=== PATIENT | female | born 1940 | race Two or more races ===

== ENCOUNTER 2021-04-17 16:31 | Emergency (ER) | payer OTHER ==
[~2021-04-17] VITALS: Ht 167.6 cm; Wt 77.6 kg
[2021-04-17] MEDS ORDERED: ACETAMINOPHEN 500 MG TAB PO ONE (17:00)
[2021-04-17 17:54] VITALS: BP 134/70
== END 2021-04-17 18:26 | disposition home or self-care (01) ==
LOC: ER 16:31
DX: S52.592A Other fractures of lower end of left radius, initial encounter for closed fracture (principal); S52.615A Nondisplaced fracture of left ulna styloid process, initial encounter for closed fracture; I10 Essential (primary) hypertension; Z98.890 Other specified postprocedural states; W01.0XXA Fall on same level from slipping, tripping and stumbling without subsequent striking against object, initial encounter; Y93.89 Activity, other specified; Y92.89 Other specified places as the place of occurrence of the external cause; Y99.8 Other external cause status
CPT/HCPCS: 29125; 73110

== ENCOUNTER 2025-04-07 07:40 | Day surgery (SDC) | payer OTHER ==
[~2025-04-07] VITALS: Ht 165.1 cm; Wt 67.1 kg
[~2025-04-07 07:40] MED LIST: AMLO1TAB23 PO; APIX2.5T PO; ATEN-60 PO; CRAN500C9 PO; FAMO20TA10 PO; PANT40TA2 PO
[2025-04-07] MEDS ORDERED: fentaNYL CITRATE 100 MCG/2 ML VL IV ONE (08:15)
[2025-04-07] MEDS ORDERED: LIDOCAINE VISCOUS 2% 15ML UD PO ONE (08:15)
[2025-04-07] MEDS ORDERED: MIDAZOLAM HCL 2MG/2ML 2ml VIAL (1mg/ml) IV ONE (08:15)
[2025-04-07] MEDS ORDERED: diphenhdrAMINE HCL 50 MG/1 ML VL ONE (08:39)
[2025-04-07 09:55] VITALS: BP 134/80; PULSE 87; RESP 19; TEMP 98.2; O2SAT 96
--- NOTE | 2025-04-07 10:04 | DVHOP2 ---
Operative Report Operative Report [employer] WARRANT OFFICER PROCEDURE REPORT [place], [place] Date of Service: 04/07/25 Head Up Operator Helper: Prema Jeffrey MD PROCEDURES PERFORMED: trans esophageal echocardiogram, conscious sedation <15 mins, doppler assesment complete ANA, DC cardioversion PREOPERATIVE DIAGNOSES: AFib POSTOP DIAGNOSIS: SR DESCRIPTION OF PROCEDURE: The patient or appropriate family signed informed consent understanding the risks, benefits and alternatives of the procedure, they wished to proceed. The patient was brought to the cardiac dairy laboratory technician in n.p.o. state. the patient was given 15 ml of oral viscous lidocaine. the patient was placed in a left lateral decubitus position with bite block in mouth. NExt conscious sedation was administered per dairy laboratory technician protocol with __2 mg of versed and __50_ mcg of fentanyl. Next a ANA probe was advanced to the mid esophagus with ease and multiple planar images obtained. At the completion of the procedure , probe was removed and there were no immediate complications. FINDINGS: Left Ventricle: Normal LV size and function, LVEF estimated at 55 % Right Ventricle: NOrmal RV unction Left atrium: moderate to marked enlargement Right atrium: mpderate enlarged Left atrial appendage: no thrombus noted, decreased velocity on PW monitoring Aortic valve: trileaflet valve, no severe or AI Mitral Valve: structurally normal, mild to moderate mitral regurg, no MS Tricuspid Valve: mild tricuspid regurgitaiton, no TS Pulmonic Valve: strucutrally normal, no severe PIor PS Interatrial septum: negative color flow for R to L shunt Ascending aorta: no severe plaquing Next we sync'ed to 200 J and 1 shock delivered with successful yarsanism of Normal Sinus rhythm. CONCLUSIONS: 1. Successful ANA guided DCCV PLAN: cont doac cont amiodarone for now high risk for recurrence given atrial size PREMA JEFFREY MD Apr 07, 2025 10:04
[2025-04-07 10:10] VITALS: BP 134/76; PULSE 75; RESP 13; O2SAT 94
[2025-04-07 10:25] VITALS: BP 114/69; PULSE 74; RESP 12; O2SAT 96
[2025-04-07 10:40] VITALS: BP 116/53; PULSE 58; RESP 15; O2SAT 98
[2025-04-07 10:55] VITALS: BP 113/62; PULSE 61; RESP 15; O2SAT 97
[2025-04-07 11:25] VITALS: BP 127/85; PULSE 65; RESP 18; O2SAT 95
--- NOTE | 2025-04-08 07:41 | ECG ---
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
--- NOTE | 2025-04-08 07:42 | ECG ---
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
[2025-04-11] MEDS ORDERED: CYCL0.05 EACHEYE (19:43)
== END 2025-04-07 11:35 | disposition home or self-care (01) ==
LOC: CATH 07:40
PROVIDERS: ATTEND Internal Medicine
DX: I48.91 Unspecified atrial fibrillation (principal); I08.1 Rheumatic disorders of both mitral and tricuspid valves; Z79.899 Other long term (current) drug therapy; Z88.8 Allergy status to other drugs, medicaments and biological substances; Z80.8 Family history of malignant neoplasm of other organs or systems
CPT/HCPCS: 92960; 93005; 93312; 93325; J1200; J2250; J3010; J7040; 99152

== ENCOUNTER 2025-04-11 12:51 | Inpatient (IN) | payer OTHER ==
[~2025-04-11] VITALS: Ht 165.1 cm; Wt 69.5 kg
--- NOTE | 2025-04-11 13:07 | ECG ---
[facility] Test Date: 2025-04-11 Test Time: 12:57:51 Pat Name: PILLO BRAGG Department: ER Room: 0276T Gender: F Biometrician: LUCIANO : 1940 Requested By: CHANDRAKANT GRAHAM Order Number: [id number] Reading MD: Henok Carballo Measurements Intervals [place] Rate: 76 P: 42 [place]: 244 QRS: -24 QRSD: 97 T: 19 QT: 356 QTc: 401 Interpretive Statements Sinus rhythm Supraventricular bigeminy Prolonged [place] interval Probable left atrial enlargement Borderline left axis deviation Low voltage, precordial leads Anteroseptal infarct, old Electronically Signed On 04-17-2025 18:14:20 PDT by Henok Carballo Please click the below link to view image of tracing.
--- NOTE | 2025-04-11 13:08 | ED.PDOC ---
HPI Comments This is a 85 year old female presenting to the ED with chief complaint of chest pain. Patient reports that she has been experiencing left sided chest pressure with associated palpitations since yesterday. Patient relays that she was cardioverted on 04/07/25 for A-Fib treatment, feeling much better until symptom onset. Time Seen by MD: 13:06 Primary Care Provider: Degn Contreras Notes: Nurses Notes, Medications, Allergies Allergies: Uncoded Allergies: Macrobid, Losartan, Lisinopril, Benicar (Allergy, Intermediate, 04/03/25) Home Meds Reported Medications Amlodipine Besylate (Amlodipine Besylate) 10 Mg Tab, 1 TAB PO QAM for HYPERTENSION 04/04/25 Cranberry Extract (Cran-Max) 500 Mg Cap, 1 CAP PO DAILY for SUPPLEMENT 04/04/25 Pantoprazole Sodium Sesquihydr (Protonix) 40 Mg Tab, 1 TAB PO DAILY for GERD 04/04/25 Apixaban Base (ELIQUIS) 2.5 Mg Tab, 1 TAB PO BID for A.FIB 04/02/25 Famotidine (PEPCID TABLET) 20 Mg Tb, 2 TAB PO DAILY for GERD 04/02/25 Atenolol (Atenolol) 25 Mg Tab, 1 TAB PO QAM for HYPERTENSION 04/02/25 Discontinued Reported Medications Amlodipine Besylate (Amlodipine Besylate) 5 Mg Tab, 10 MG PO DAILY for 30 Days, MG 04/03/25 Cranberry Extract (Cranberry Extract) 200 Mg Cap, 500 MG PO DAILY for SUPPLEMENT, CAP 04/02/25 Information Source: Patient Mode of Arrival: Ambulatory Severity: Moderate Timing: Days Duration: Since onset Prehospital treatment: None Location: Chest (L) Radiation: No Radiation Quality: Pressure Onset: At Rest Cardiac Risk Factors: HTN Past Medical History PAST MEDICAL HISTORY: AFIB, Cancer, HTN Surgical History: Hernia Repair, Hysterectomy LABOR TRAINER History: Denies all LABOR TRAINER Hx Family History Family History: Reviewed,noncontributory to illness Social History Smoker: Non-Smoker Alcohol: Denies ETOH Use Drugs: Denies Drug Use Lives In: Home Constitutional: denies: chills, diaphoresis, fatigue, fever, malaise, sweats, weakness, others EENTM: denies: blurred vision, double vision, ear bleeding, ear discharge, ear drainage, ear pain, ear ringing, eye pain, eye redness, hearing loss, mouth pain, mouth swelling, nasal discharge, nose bleeding, nose congestion, nose pain, photophobia, tearing, throat pain, throat swelling, voice changes, others Respiratory: denies: cough, hemoptysis, orthopnea, SOB at rest, shortness of breath, SOB with excertion, stridor, wheezing, others Cardiovascular: reports: chest pain, palpitations; denies: dizzy spells, diaphoresis, Dyspnea on exertion, edema, irregular heart beat, left arm pain, lightheadedness, PND, syncope, others Gastrointestinal: denies: abdomen distended, abdominal pain, blood streaked bowels, constipated, diarrhea, dysphagia, difficulty swallowing, hematemesis, melena, nausea, poor appetite, poor fluid intake, rectal bleeding, rectal pain, vomiting, others Genitourinary: denies: abnormal vagina bleeding, burning, dyspareunia, dysuria, flank pain, frequency, hematuria, incontinence, pain, , vagina discharge, urgency, others Neurological: denies: dizziness, fainting, headache, left sided numbness, left sided weakness, numbness, paresthesia, pre-existing deficit, right sided numbness, right sided weakness, seizure, speech problems, tingling, tremors, weakness, others Musculoskeletal: denies: back pain, gout, joint pain, joint swelling, muscle pain, muscle stiffness, neck pain, others Integumetry: denies: bruises, change in color, change in hair/nails, dryness, laceration, lesions, lumps, rash, wounds, others Allergic/Immunocompromised: denies: Difficulty Healing, Frequent Infections, Hives, Itching, others Hematologic/Lymphatic: denies: anemia, blood clots, easy bleeding, easy bruising, swollen glands, others Endocrine: denies: excessive hunger, excessive sweating, excessive thirst, excessive urination, flushing, intolerance to cold, intolerance to heat, unexplained weight gain, unexplained weight loss, others Psychiatric: denies: anxiety, bipolar disorder, depression, hopeless, panic disorder, schizophrenia, sleepless, suicidal, others All Other Systems: Reviewed and Negative Physical Exam General Appearance: No Apparent Distress, Normal HEENT: Normal ENT Inspection, Pharynx Normal, TMs Normal Neck: Full Range of Motion, Non-Tender, Normal, Normal Inspection Respiratory: Chest Non-Tender, Lungs Clear, No Accessory Muscle Use, No Respiratory Distress, Normal Breath Sounds Cardiovascular: No Edema, No JVD, No Murmur, No Gallop, Normal Peripheral Pulses, Other (Irregularly irregular) Breast Exam: Deferred Gastrointestinal: No Organomegaly, Non Tender, No Pulsatile Mass, Normal Bowel Sounds, Soft Genitalia: Deferred Pelvic: Deferred Rectal: Deferred Extremities: No calf tenderness, Normal capillary refill, Normal inspection, Normal range of motion, Non-tender, No pedal edema Musculoskeletal : Apperance: Normal Neurologic: Alert, paper cone grader II-XII nml as Tested, No Motor Deficits, Normal Affect, Normal Mood, No Sensory Deficits Cerebellar Function: Normal Reflexes: Normal Skin: Dry, Normal Color, Warm Lymphatic: No Adenopathy EKG EKG : Pulse Rate (adult): 76 Cardiac Rhythm: NSR Comments Supraventricular Bigeminy, Septal Q Waves, No ST elevation Was a procedure done? Was a procedure done?: No CP Differential Dx Differential Diagnosis: A-fib, A-Flutter, Angina, Anxiety / Panic Attack, Atrial Dysrhythmia, Electrolyte Disorder, IA Differential Diagnosis: Angina, Aortic dissection, Chest Wall Pain, Cholelithiasis, Costochondritis, Esophageal reflux/spasm, Gastritis, Myocardial Infarction, Pericarditis, Pneumonia, Pneumothorax, Pulmonary Embolus X-Ray, Labs, Meds, VS Vital Signs Date Time Temp Pulse Resp B/P (MAP) Pulse Ox O2 Delivery O2 Flow Rate FiO2 04/11/25 15:29 97.3 67 16 136/72 (93) 98 97.3 04/11/25 13:54 82 04/11/25 13:30 66 04/11/25 13:30 98.6 66 18 146/75 (98) 97 98.6 04/11/25 13:08 76 04/11/25 12:57 76 04/11/25 12:55 97.7 69 18 153/71 (98) 96 97.7 Lab Test 04/11/25 16:44 04/11/25 14:03 04/11/25 13:18 Range/Units Troponin I High Sensitivity Pending 5 5 </=34 ng/L White Blood Count 5.8 4.4-10.8 10^3/uL Red Blood Count 3.99 L 4.0-5.20 10^6/uL Hemoglobin 12.6 12.2-16.2 g/dL Hematocrit 37.4 36.0-46.0 % Mean Corpuscular Volume 93.9 80.0-100.0 fL Mean Corpuscular Hemoglobin 31.6 28.0-32.0 pg Mean Corpuscular Hemoglobin Concent 33.7 32.0-36.0 g/dL Red Cell Distribution Width 14.6 H 11.8-14.3 % Platelet Count 172 140-450 10^3/uL Mean Platelet Volume 8.2 6.9-10.8 fL Neutrophils (%) (Auto) 64.5 37.0-80.0 % Lymphocytes (%) (Auto) 25.1 10.0-50.0 % Monocytes (%) (Auto) 7.8 0.0-12.0 % Eosinophils (%) (Auto) 1.7 0.0-7.0 % Basophils (%) (Auto) 0.9 0.0-2.0 % Neutrophils # (Auto) 3.8 1.6-8.6 10 ^3/uL Lymphocytes # (Auto) 1.5 0.4-5.4 10 ^3/uL Monocytes # (Auto) 0.5 0-1.3 10 ^3/uL Eosinophils # (Auto) 0.1 0-0.8 10 ^3/uL Basophils # (Auto) 0.1 0-0.2 10 ^3/uL Nucleated Red Blood Cells 0.0 % Sodium Level 143 136-145 mmol/L Potassium Level 4.0 3.5-5.1 mmol/L Chloride Level 109 H 98-107 mmol/L Carbon Dioxide Level 26 20-31 mmol/L Anion Gap 8 5-15 Blood Urea Nitrogen 17 9-23 mg/dL Creatinine 0.96 0.550-1.02 mg/dL Glomerular Filtration Rate Calc 58 >90 mL/min BUN/Creatinine Ratio 17.7 10.0-20.0 Serum Glucose 89 74-106 mg/dL Calcium Level 11.3 H 8.7-10.4 mg/dL Current Medications Medications (Trade) Dose Ordered Sig/Jany Route Start Time Stop Time Status Last Admin Aspirin 162 mg ONCE ONCE PO 04/11/25 13:15 04/11/25 13:16 DC 04/11/25 13:36 Chest XR: FINDINGS: LUNGS AND PLEURAL SPACES: Unremarkable. No consolidation. No pneumothorax. HEART: Cardiomegaly without overt failure. MEDIASTINUM: Unremarkable. Normal mediastinal contour. BONES/JOINTS: Unremarkable. No acute fracture. OTHER FINDINGS: Comparison None. IMPRESSION: Cardiomegaly without overt failure. Images Reviewed?: Images reviewed and evaluated by me Time of 1ST Reevaluation: 14:04 Reevaluation 1ST: Unchanged Time of 2ND Reevaluation: 16:26 Reevaluation 2ND: Improved Consultation: Other (Dr Vega, who is non profit financial controller for choice and will admit) Patient Education/Counseling: Diagnosis, Treatment, Prognosis, Need For Follow Up Family Education/Counseling: Diagnosis, Treatment, Prognosis, Need For Follow Up, No Family Present Comments pt has unstable angina. workup does not show IA, but she has new chest pain, without prior history of chest pain, a HEART score of 7 Additional Information Reviewed patient's previous visit(s): 04/17/21 for Fall injury to left arm The following tests were ordered, and results were reviewed by me: CBC, BMP, Troponin, EKG, Chest XR Additional information was gathered from interviewing the following independent historian: None I reviewed and agreed with the following test results read by other provider: Chest XR I discussed treatments and results with medical personnel and: Patient Comprehensive systems review obtained and negative except for what is stated in the HPI. SEPSIS Sepsis Screen Physician Orders Chest Portable (04/11/25 13:06) Continuous Ekg Monitoring 08,12,16,20,00,04 (04/11/25 13:06) Troponin-I Hs (04/11/25 16:06) Electrocardigram (04/11/25 14:06) Electrocardigram (04/11/25 16:06) Vital Signs Date Time Temp Pulse Resp B/P (MAP) Pulse Ox O2 Delivery O2 Flow Rate FiO2 04/11/25 15:29 97.3 67 16 136/72 (93) 98 97.3 04/11/25 13:54 82 04/11/25 13:30 66 04/11/25 13:30 98.6 66 18 146/75 (98) 97 98.6 04/11/25 13:08 76 04/11/25 12:57 76 04/11/25 12:55 97.7 69 18 153/71 (98) 96 97.7 Laboratory Tests Test 04/11/25 13:18 White Blood Count 5.8 10^3/uL (4.4-10.8) Medications Medications Dose Ordered Sig/Jany Route Start Time Stop Time Status Last Admin Dose Admin Aspirin 162 mg ONCE ONCE PO 04/11/25 13:15 04/11/25 13:16 DC 04/11/25 13:36 Departure 1 Departure Time of Disposition: 16:27 Impression: Primary Impression: Unstable angina Disposition: ADMITTED INPATIENT Admit to: Tele Condition: Serious Discharged With: Self, Relative Critical Care Note Critical Care Time?: Yes (55 min-critical care time only) Critical care comment: due to concerns for patient's condition deteriorating, the care required my highest level of attention and readiness to intervene. i assessed the patient's condition, ordered the proper tests and treatments, reassessed for response and reviewed the results. i communicated with medical personnel and formulated a plan of care. total critical care time does not include any procedures Stability Stability form required: No Heart Score Heart Score: Heart Score Response (Comments) Value History Highly Suspicious 2 EKG Repolarization Disturb 1 Age >65 2 Risk Factors >3 or Hx ASHD 2 Troponin Normal limit 0 Total 7 I personally scribed for CHANDRAKANT GRAHAM MD ([email or web address]) on 04/11/25 at 13:08. Electronically submitted by Alec Schrader ([email or web address]). I personally scribed for CHANDRAKANT GRAHAM MD ([email or web address]) on 04/11/25 at 14:51. Electronically submitted by Alec Schrader ([email or web address]). CHANDRAKANT GRAHAM MD Apr 11, 2025 13:08
[2025-04-11 13:30] VITALS: PULSE 66
--- NOTE | 2025-04-11 13:32 | DVH ---
EXAM: XR Chest, 1 View CLINICAL INDICATION: cp TECHNIQUE: Frontal view of the chest. COMPARISON: No relevant prior studies available. FINDINGS: LUNGS AND PLEURAL SPACES: Unremarkable. No consolidation. No pneumothorax. HEART: Cardiomegaly without overt failure. MEDIASTINUM: Unremarkable. Normal mediastinal contour. BONES/JOINTS: Unremarkable. No acute fracture. OTHER FINDINGS: Comparison None. IMPRESSION: Cardiomegaly without overt failure. HS:Y
[2025-04-11 13:50] LABS: Hematocrit 37.4 % (36.0-46.0); Hemoglobin 12.6 g/dL (12.2-16.2); Mean Corpuscular Hemoglobin 31.6 pg (28.0-32.0); Mean Corpuscular Volume 93.9 fL (80.0-100.0); Nucleated Red Blood Cells % 0.0 %
[2025-04-11 13:54] LABS: Potassium 4.0 mmol/L (3.5-5.1); Sodium 143 mmol/L (136-145)
[2025-04-11 13:55] LABS: Anion Gap 8 (5-15); Carbon Dioxide 26 mmol/L (20-31)
[2025-04-11 14:00] LABS: BUN/Creatinine Ratio 17.7 (10.0-20.0); Blood Urea Nitrogen 17 mg/dL (9-23); Glucose 89 mg/dL (74-106)
[2025-04-11 14:08] LABS: Calcium 11.3 mg/dL (8.7-10.4); Chloride 109 mmol/L (98-107)
[2025-04-11] MEDS ORDERED: MORPHINE SULFATE INJ 2 MG/ml SYRG IV PRN ×2 (18:30)
[2025-04-11] MEDS ORDERED: ONDANSETRON HCL 4 MG/2 ML VIAL IV PRN (18:30)
[2025-04-11] MEDS ORDERED: NITROGLYCERIN 0.4 MG SL TAB SL PRN (18:30)
[2025-04-11] MEDS ORDERED: HYDROcodone-ACET 5/325MG TAB PO PRN (18:30)
[2025-04-11] MEDS: SODIUM CHLORIDE 0.9% 1,000 ML IV SCH (18:58)
[2025-04-11 19:19] VITALS: BP 150/87; PULSE 73; RESP 17; TEMP 98.1; O2SAT 99
[2025-04-11] MEDS ORDERED: LATA0.008 EACHEYE (19:43)
[2025-04-11] MEDS ORDERED: CALC600T25 PO (19:43)
[2025-04-11] MEDS ORDERED: CYCL0.05 EACHEYE (19:43)
[2025-04-11] MEDS ORDERED: ATEN-60 PO (19:43)
[2025-04-11] MEDS ORDERED: METR1GEL EX (19:45)
[2025-04-11 20:07] VITALS: RESP 16; O2SAT 0
[2025-04-11 22:10] VITALS: BP 137/73; PULSE 63; RESP 17; TEMP 97.7; O2SAT 97
[2025-04-12 01:00] VITALS: BP 133/79; PULSE 63; RESP 17; TEMP 97.7; O2SAT 97
--- NOTE | 2025-04-12 01:48 | DVHHP2 ---
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 Patient denies aggravating factors. Patient endorses her vrt mechanic is Dr. Iyer. During the emergency department evaluation CBC is unremarkable. CMP is unremarkable. Troponin flat trending . ECG SR with supraventricular bigeminy, prolonged NC interval, old anteroseptal infarct. CXR impression cardiomegaly without overt failure. At this time there are no complaints of fevers, chills, shortness of breath, dizziness, syncope, abdominal pain, nausea, vomiting, leg swelling Cardiovascular: AFIB, HTN Smoke: No ALCOHOL: none Drugs: None Review of Systems Constitutional: No: Fever, Chills, Sweats, Weakness, Malaise, Other Eyes: No: Pain, Vision change, Conjunctivae inflammation, Eyelid inflammation, Other, Redness ENT: No: Ear pain, Ear discharge, Nose pain, Nose discharge, Nose congestion, Mouth pain, Mouth swelling, Throat pain, Throat swelling, Other Respiratory: No: Cough, Dry, Shortness of breath, SOB with excertion, Wheezing, Hemoptysis, Pleuritic Pain, Sputum, Wheezing, Other Cardiovascular: Chest Pain, Palpitations; No: Orthopnea, Paroxysmal Noc. Dyspnea, Edema, Lt Headedness, Other Gastrointestinal: No: Nausea, Vomiting, Abdominal Pain, Diarrhea, Constipation, Melena, Hematochezia, Other Genitourinary: No Dysuria, No Frequency, No Incontinence, No Hematuria, No Ret ention, No Other Musculoskeletal: No: other, neck pain, shoulder pain, arm pain, back pain, hand pain, leg pain, foot pain Skin: No: Rash, Lesions, Jaundice, Bruising, Other Neurological: No: Weakness, Numbness, Incoordination, Change in speech, Confusion, Seizures, Other Allergies: Uncoded Allergies: Macrobid, Losartan, Lisinopril, Benicar (Allergy, Intermediate, 04/03/25) Medications Current Medications Medications Dose Ordered Sig/Jany Route Start Time Stop Time Status Last Admin Dose Admin Sodium Chloride 1,000 ml @ 60 mls/hr [id number] IV 04/11/25 18:30 04/11/25 18:58 60 MLS/HR Acetaminophen/ Hydrocodone Bitart 1 tab Q4HP PRN PO 04/11/25 18:30 Ondansetron HCl 4 mg Q4HP PRN IV 04/11/25 18:30 Enoxaparin Sodium 40 mg DAILY SC 04/12/25 10:00 Acetaminophen 650 mg Q6HP PRN PO 04/11/25 18:30 Morphine Sulfate 2 mg Q4HPRN PRN IV 04/11/25 18:30 Nitroglycerin 0.4 mg Q5MINP PRN SL 04/11/25 18:30 Morphine Sulfate 2 mg Q30M PRN IV 04/11/25 18:30 Exam Vital Signs Vital Signs Date Time Temp Pulse Resp B/P (MAP) Pulse Ox O2 Delivery O2 Flow Rate FiO2 04/11/25 22:10 97.7 63 17 137/73 (94) 97 97.7 04/11/25 20:07 Room Air* 0 21 General Appearance: Alert, Oriented X3, Cooperative, mild distress HEENT: Atraumatic, PERRLA, EOMI Respiratory: Clear to auscultation, Normal air movement Cardiovascular: Regular rate, Normal S1, Normal S2 Abdominal: Normal bowel sounds, Soft, No tenderness Extremities: No cyanosis, No edema, Normal pulses Skin: No rashes, No breakdown Neuro: Normal speech, Strength at 5/5 X4 ext Psych/Mental Status: Mental status NL, Mood NL Labs/Xrays Labs Test 04/11/25 16:44 04/11/25 13:18 Range/Units Troponin I High Sensitivity 5 </=34 ng/L White Blood Count 5.8 4.4-10.8 10^3/uL Red Blood Count 3.99 L 4.0-5.20 10^6/uL Hemoglobin 12.6 12.2-16.2 g/dL Hematocrit 37.4 36.0-46.0 % Mean Corpuscular Volume 93.9 80.0-100.0 fL Mean Corpuscular Hemoglobin 31.6 28.0-32.0 pg Mean Corpuscular Hemoglobin Concent 33.7 32.0-36.0 g/dL Red Cell Distribution Width 14.6 H 11.8-14.3 % Platelet Count 172 140-450 10^3/uL Mean Platelet Volume 8.2 6.9-10.8 fL Neutrophils (%) (Auto) 64.5 37.0-80.0 % Lymphocytes (%) (Auto) 25.1 10.0-50.0 % Monocytes (%) (Auto) 7.8 0.0-12.0 % Eosinophils (%) (Auto) 1.7 0.0-7.0 % Basophils (%) (Auto) 0.9 0.0-2.0 % Neutrophils # (Auto) 3.8 1.6-8.6 10 ^3/uL Lymphocytes # (Auto) 1.5 0.4-5.4 10 ^3/uL Monocytes # (Auto) 0.5 0-1.3 10 ^3/uL Eosinophils # (Auto) 0.1 0-0.8 10 ^3/uL Basophils # (Auto) 0.1 0-0.2 10 ^3/uL Nucleated Red Blood Cells 0.0 % Sodium Level 143 136-145 mmol/L Potassium Level 4.0 3.5-5.1 mmol/L Chloride Level 109 H 98-107 mmol/L Carbon Dioxide Level 26 20-31 mmol/L Anion Gap 8 5-15 Blood Urea Nitrogen 17 9-23 mg/dL Creatinine 0.96 0.550-1.02 mg/dL Glomerular Filtration Rate Calc 58 >90 mL/min BUN/Creatinine Ratio 17.7 10.0-20.0 Serum Glucose 89 74-106 mg/dL Calcium Level 11.3 H 8.7-10.4 mg/dL Assessment/Plan Assessment/Plan Angina Hx Afib s/p cardioversion Hypertension Plan Admit telemetry Consult cardiology. Echocardiogram. Continue home medication. As needed antihypertensive for optimal BP management. Monitor electrolytes. As needed sublingual nitroglycerin for chest pain. Physical therapy evaluation GI PPx protonix / DVT PPX Lovenox Plan discussed with: Patient Date of Service: Apr 12, 2025 Billing Provider: NICKY HERNANDEZ MD Common Visit Codes: NOT BILLABLE NICKY HERNANDEZ MD 04/12/25 1633: Review of Systems Allergies: Uncoded Allergies: Macrobid, Losartan, Lisinopril, Benicar (Allergy, Intermediate, 04/03/25) EMPERATRIZ DINH NP Apr 12, 2025 01:48 NICKY HERNANDEZ MD Apr 12, 2025 16:33
[2025-04-12 05:00] VITALS: BP 136/97; PULSE 68; RESP 18; TEMP 97.9; O2SAT 96
--- NOTE | 2025-04-12 06:41 | ECG ---
[facility] Test Date: 2025-04-11 Test Time: 13:54:28 Pat Name: PILLO BRAGG Department: ER Room: [facility]6T B Gender: F Invisible Braces Orthodontist: AALIYAH : 1940 Requested By: CHANDRAKANT GRAHAM Order Number: [id number] Reading MD: Henok Carballo Measurements Intervals [place] Rate: 82 P: 27 DC: 262 QRS: -23 QRSD: 97 T: 16 QT: 371 QTc: 434 Interpretive Statements Sinus rhythm Supraventricular bigeminy Prolonged [place] interval Probable left atrial enlargement Borderline left axis deviation Anteroseptal infarct, age indeterminate Electronically Signed On 04-17-2025 18:14:59 PDT by Henok Carballo Please click the below link to view image of tracing.
[2025-04-12 07:18] LABS: Hematocrit 39.2 % (36.0-46.0); Hemoglobin 13.2 g/dL (12.2-16.2); Mean Corpuscular Hemoglobin 31.7 pg (28.0-32.0); Mean Corpuscular Volume 94.3 fL (80.0-100.0); Nucleated Red Blood Cells % 0.1 %
[2025-04-12 07:30] LABS: Anion Gap 9 (5-15); Carbon Dioxide 25 mmol/L (20-31); Potassium 4.0 mmol/L (3.5-5.1); Sodium 144 mmol/L (136-145)
[2025-04-12 07:36] LABS: BUN/Creatinine Ratio 14.8 (10.0-20.0); Blood Urea Nitrogen 13 mg/dL (9-23); Calcium 11.6 mg/dL (8.7-10.4); Chloride 110 mmol/L (98-107); Glucose 79 mg/dL (74-106)
[2025-04-12 07:37] LABS: Magnesium 1.9 mg/dL (1.6-2.6)
[2025-04-12 08:00] VITALS: PULSE 108; PULSE 67; RESP 18; O2SAT 93
[2025-04-12 09:00] VITALS: BP 140/68; PULSE 72; RESP 20; TEMP 97; O2SAT 96
[2025-04-12] MEDS: PANTOPRAZOLE 40 MG/10 ML VIAL INJ IV SCH (09:20)
[2025-04-12] MEDS: ENOXAPARIN SOD 40 MG/0.4 ML SYRINGE SC SCH (09:21)
[2025-04-12] MEDS: ACETAMINOPHEN 325 MG TAB PO PRN (09:21)
--- NOTE | 2025-04-12 10:18 | DVHINCON2 ---
Date Seen: Apr 12, 2025 Referring Physician MD Gary Reason for Consultation Unstable angina History of Present Illness This is an 85-year-old female patient who presents to the emergency room with chief complaint of chest pain for two days prior to emergency room arrival. She describes the pain as unprovoked, pressure-like in nature, intermittent, substernal and nonradiating. She denies any aggravating or alleviating factors. She also denies any associated symptoms. Cardiology has now been consulted for further evaluation. Initial twelve lead electrocardiogram reveals normal sinus rhythm with first-degree AV block and bigeminy PACs. Serial troponin levels hav e been negative. Significant past medical history includes hypertension, atrial fibrillation status post ANA with direct current cardioversion on 04/07/2025, uterine cancer status post total hysterectomy, cataracts, and glaucoma. The patient follows for Cardiology in the outpatient setting. Past Medical History Past medical history reviewed. No other significant than mentioned above. Past Surgical History Total hysterectomy Hernia repair Family History: Cancer of mouth Family History Family history reviewed. Social History Denies the use of tobacco, alcohol or illicit drugs. Allergies: Uncoded Allergies: Macrobid, Losartan, Lisinopril, Benicar (Allergy, Intermediate, 04/03/25) Home Meds Reported Medications Metronidazole (Topical) (METRONIDAZOLE) 1 % Gel, 1 % EX BID, GEL 04/11/25 Calcium W/ Vitamin D (CALCIUM/VITAMIN D) 600 Mg Tab, 600 MG PO DAILY, TAB 04/11/25 Latanoprost (LATANOPROST) 0.005 % Kaylee, 1 DROP EACHEYE QPM, #2.5 ML 6 Refills 04/11/25 Cyclosporine (Ophth) (Restasis) 0.05 % Emu, 0.5 DROP EACHEYE BID, #60 VIAL 3 Refills 04/11/25 Atenolol (Atenolol) 25 Mg Tab, 12.5 MG PO BID, MG 04/11/25 Amlodipine Besylate (Amlodipine Besylate) 10 Mg Tab, 1 TAB PO QAM for HYPERTENSION 04/04/25 Pantoprazole Sodium Sesquihydr (Protonix) 40 Mg Tab, 1 TAB PO DAILY for GERD 04/04/25 Apixaban Base (ELIQUIS) 2.5 Mg Tab, 1 TAB PO BID for A.FIB 04/02/25 Famotidine (PEPCID TABLET) 20 Mg Tb, 2 TAB PO DAILY for GERD 04/02/25 Home Meds Home medications reviewed. Current Medications Current Medications Medications (Trade) Dose Ordered Sig/Jany Route PRN Reason Start Time Stop Time Status Last Admin Sodium Chloride 1,000 ml @ 60 mls/hr [id number] IV 04/11/25 18:30 04/11/25 18:58 Acetaminophen/ Hydrocodone Bitart ([place] 5/325MG Tab) 1 tab Q4HP PRN PO MODERATE PAIN (4-6 PAIN SCALE) 04/11/25 18:30 Ondansetron HCl (Zofran) 4 mg Q4HP PRN IV NAUSEA / VOMITING 04/11/25 18:30 Enoxaparin Sodium (Lovenox) 40 mg DAILY SC 04/12/25 10:00 04/12/25 09:21 Acetaminophen (Tylenol Tablet) 650 mg Q6HP PRN PO PAIN SCALE 1-3 OR TEMP>100.4 04/11/25 18:30 04/12/25 09:21 Morphine Sulfate 2 mg Q4HPRN PRN IV SEVERE PAIN (7-10 PAIN SCALE) 04/11/25 18:30 Nitroglycerin (Ntrostat Sublingual) 0.4 mg Q5MINP PRN SL FOR CHEST PAIN 04/11/25 18:30 Morphine Sulfate 2 mg Q30M PRN IV FOR CHEST PAIN 04/11/25 18:30 Pantoprazole Sodium (Protonix) 40 mg DAILY IV 04/12/25 10:00 04/12/25 09:20 Review of Systems Constitutional: No symptom reported Ears, Nose, & Throat: No symptom reported Eyes: No symptom reported Neurological: No symptoms reported Pulmonary/Respiratory: No symptoms reported Cardiovascular: Chest pain Gastrointestinal: No symptom reported Genitourinary: No symptom reported Musculoskeletal: No symptom reported Skin: No symptom reported Psychiatric: No symptom reported Endocrine: No symptom reported Hematologic/Lymphatic: No symptom reported Vital Signs Vital Signs Date Time Temp Pulse Resp B/P (MAP) Pulse Ox O2 Delivery O2 Flow Rate FiO2 04/12/25 09:00 97.0 72 20 140/68 (92) 96 97.0 04/12/25 08:00 Room Air* 0 21 Physical Exam General Appearance: Cooperative. Well-developed. Well-nourished. No acute distress. Pulmonary/Respiratory: Clear, bilateral breaths sounds. Cardiovascular/Chest: Regular rate and rhythm. No murmurs, no JVD. Peripheral Pulses: 2+ Radial (R). 2+ Radial (L). 2+ Pedal (R). 2+ Pedal (L) Abdominal Exam: Normal bowel sounds Ankle Exam: Negative ankle edema Lower extremities: Negative lower extremity edema Neuro/Mental Status: A/OX4, coherent. Thoughts/Psych: Normal thought pattern. Appropriate mood and affect. Good judgment and insight. Appearance: No acute distress. Skin Exam: Normal inspection. Normal color. Warm and dry. Labs/Diagnostic Data Labs Test 04/12/25 06:37 04/11/25 16:44 Range/Units White Blood Count 4.6 4.4-10.8 10^3/uL Red Blood Count 4.16 4.0-5.20 10^6/uL Hemoglobin 13.2 12.2-16.2 g/dL Hematocrit 39.2 36.0-46.0 % Mean Corpuscular Volume 94.3 80.0-100.0 fL Mean Corpuscular Hemoglobin 31.7 28.0-32.0 pg Mean Corpuscular Hemoglobin Concent 33.6 32.0-36.0 g/dL Red Cell Distribution Width 14.6 H 11.8-14.3 % Platelet Count 156 140-450 10^3/uL Mean Platelet Volume 8.2 6.9-10.8 fL Neutrophils (%) (Auto) 64.8 37.0-80.0 % Lymphocytes (%) (Auto) 23.1 10.0-50.0 % Monocytes (%) (Auto) 9.1 0.0-12.0 % Eosinophils (%) (Auto) 1.9 0.0-7.0 % Basophils (%) (Auto) 1.1 0.0-2.0 % Neutrophils # (Auto) 3.0 1.6-8.6 10 ^3/uL Lymphocytes # (Auto) 1.1 0.4-5.4 10 ^3/uL Monocytes # (Auto) 0.4 0-1.3 10 ^3/uL Eosinophils # (Auto) 0.1 0-0.8 10 ^3/uL Basophils # (Auto) 0.1 0-0.2 10 ^3/uL Nucleated Red Blood Cells 0.1 % Sodium Level 144 136-145 mmol/L Potassium Level 4.0 3.5-5.1 mmol/L Chloride Level 110 H 98-107 mmol/L Carbon Dioxide Level 25 20-31 mmol/L Anion Gap 9 5-15 Blood Urea Nitrogen 13 9-23 mg/dL Creatinine 0.88 0.550-1.02 mg/dL Glomerular Filtration Rate Calc 64 >90 mL/min BUN/Creatinine Ratio 14.8 10.0-20.0 Serum Glucose 79 74-106 mg/dL Calcium Level 11.6 H 8.7-10.4 mg/dL Magnesium Level 1.9 1.6-2.6 mg/dL Troponin I High Sensitivity 5 </=34 ng/L Assessment Chest pain Hypertension History of atrial fibrillation status post ANA with DCCV (on Eliquis) Ruled out aortic dissection Multiple cysts and liver Plan/Recommendation We will continue with the following plan/recommendations (Dr. Iyer): * Transthoracic echocardiogram to evaluate cardiac function * Chest pain protocol * HEART score: 3 points (low score) * Continue beta-jina and NOAC therapy (pt s/p DCCV) * Continuous telemetry monitoring Case discussed with . Given the patient's clinical presentation, unremarkable troponin level, and unimpressive 12 lead electrocardiogram, doubt ACS. In the setting of an unremarkable transthoracic echocardiogram, there is no further inpatient cardiac workup indicated at this time. The patient will follow up with in the outpatient setting. Thank you for allowing us to care for this patient. Please call with any questions or concerns. Critical care time spent: 44 minutes This medical document was created using an electronic medical record system with voice recognition software and computerized dictation system. Although this document has been carefully reviewed, there might still be some phonetic and typographical errors. Occasional wrong-word or ``sound-alike substitutions may have occurred due to the inherent limitations of voice recognition software. These areas are purely typographical due to imperfections of the software programs and do not reflect any compromise in the patient's medical care. Please read the chart carefully and recognize, using context, where these substitutions have occurred. Plan discussed with: Patient NYHA Physical activity limitations: NA Date of Service: Apr 12, 2025 Billing Provider: MIKALA SAGE Cardiology Common Codes: [id number] INP/OBS CARE (High) Cardiology Consultation Codes: 38039-[id number] CONSULT <45MIN MIKALA SAGE [facility] Apr 12, 2025 10:18
[2025-04-12] MEDS ORDERED: IOHEXOL 350 MG/ML 100ML IJ ONE (11:39)
[2025-04-12 12:12] LABS: Triglycerides 79 mg/dL (< 150)
[2025-04-12 12:14] LABS: Cholesterol 170 mg/dL (< 200); HDL Cholesterol 50 mg/dL (40-59)
--- NOTE | 2025-04-12 12:59 | DVH ---
CLINICAL INFORMATION: Rule out aortic dissection. Pain radiating from the chest 2. TECHNIQUE: Axial CTA images of the chest were obtained after the uneventful administration of 100 mL of Omnipaque 350 IV contrast. Coronal and sagittal reformatted images and MIP images were obtained, r eviewed, and stored. One or more of the following dose reduction techniques were used: Automated expo sure control. Adjustment of mA and/or kV according to patient size. CTDIvol = 7.52 mGy DLP = 257.97 mGy-cm COMPARISON: Chest radiograph dated 04/11/2025. FINDINGS: Aorta: No aneurysm or dissection. Mild atherosclerotic calcification. Pulmonary arteries: No central or lobar pulmonary embolism. Evaluation for segmental or subsegmental pulmonary emboli is limited due to respiratory motion artifact. Cardiac: [id number] cardiomegaly. Thickening of the murillo of the left ventricle noted, may be d ue to contraction or left ventricular hypertrophy. Moderate coronary artery calcification. Mediastinum/francisco: Mildly prominent right lower paratracheal lymph node measures up to 1.3 x 0.8 cm, m ost likely reactive. Lungs: Respiratory motion artifact limits evaluation. No focal consolidation, pneumothorax, or pleura l effusion. Scattered areas of subsegmental atelectasis. Chest wall: No mass or other abnormality. Upper abdomen: Multiple cysts are seen in the liver, with the largest measuring up to 9.2 cm in great est dimension at the hepatic dome adjacent cyst at its caudal aspect measuring up to 6 cm. Distended gallbladder partially visualized, with layering gallstones dependently. Bilateral renal cysts are see n. Small hiatal hernia. Bones: No acute fracture or suspicious intraosseous lesions. IMPRESSION: 1. No abdominal aortic aneurysm or dissection. 2. No central or lobar pulmonary embolism. Evaluation for segmental or subsegmental pulmonary emboli is limited due to respiratory motion artifact. 3. Otherwise, no evidence of acute disease in the chest. 4. Cholelithiasis with distended gallbladder. Correlate with clinical findings. If clinically indica daisy, ultrasound could be obtained to further evaluate. 5. Multiple cysts in the liver, with the largest measuring up to 9.2 cm. 6. Additional findings as detailed above.
--- NOTE | 2025-04-12 16:39 | DVHDS2 ---
Discharge Summary Date of Admission Apr 11, 2025 at 18:29 Date of Discharge: Apr 12, 2025 Labs/Diagnostic Data: Laboratory Results Test 04/12/25 06:37 04/11/25 16:44 White Blood Count 4.6 10^3/uL (4.4-10.8) Red Blood Count 4.16 10^6/uL (4.0-5.20) Hemoglobin 13.2 g/dL (12.2-16.2) Hematocrit 39.2 % (36.0-46.0) Mean Corpuscular Volume 94.3 fL (80.0-100.0) Mean Corpuscular Hemoglobin 31.7 pg (28.0-32.0) Mean Corpuscular Hemoglobin Concent 33.6 g/dL (32.0-36.0) Red Cell Distribution Width 14.6 % (11.8-14.3) Platelet Count 156 10^3/uL (140-450) Mean Platelet Volume 8.2 fL (6.9-10.8) Neutrophils (%) (Auto) 64.8 % (37.0-80.0) Lymphocytes (%) (Auto) 23.1 % (10.0-50.0) Monocytes (%) (Auto) 9.1 % (0.0-12.0) Eosinophils (%) (Auto) 1.9 % (0.0-7.0) Basophils (%) (Auto) 1.1 % (0.0-2.0) Neutrophils # (Auto) 3.0 10 ^3/uL (1.6-8.6) Lymphocytes # (Auto) 1.1 10 ^3/uL (0.4-5.4) Monocytes # (Auto) 0.4 10 ^3/uL (0-1.3) Eosinophils # (Auto) 0.1 10 ^3/uL (0-0.8) Basophils # (Auto) 0.1 10 ^3/uL (0-0.2) Nucleated Red Blood Cells 0.1 % Sodium Level 144 mmol/L (136-145) Potassium Level 4.0 mmol/L (3.5-5.1) Chloride Level 110 mmol/L (98-107) Carbon Dioxide Level 25 mmol/L (20-31) Anion Gap 9 (5-15) Blood Urea Nitrogen 13 mg/dL (9-23) Creatinine 0.88 mg/dL (0.550-1.02) Glomerular Filtration Rate Calc 64 mL/min (>90) BUN/Creatinine Ratio 14.8 (10.0-20.0) Serum Glucose 79 mg/dL (74-106) Hemoglobin A1c 5.0 % A1C (<5.7) Calcium Level 11.6 mg/dL (8.7-10.4) Magnesium Level 1.9 mg/dL (1.6-2.6) Triglycerides Level 79 mg/dL (< 150) Cholesterol Level 170 mg/dL (< 200) LDL Cholesterol 108 mg/dL (< 100) HDL Cholesterol 50 mg/dL (40-59) Thyroid Stimulating Hormone (TSH) 3.49 uIU/mL (0.55-4.78) Troponin I High Sensitivity 5 ng/L (</=34) Other Laboratory Tests 04/12/25 06:37 Brief Hx & Hospital Course: 85-year-old female with a known history of chronic AFib currently on Eliquis and beta jina, recent history of ANA status postDCCV, hypertension initially presented to the hospital with chest pain. Patient underwent 2D echo which shows questionable aortic dissection. Stat CT angio was done which shows no evidence of any aortic dissection. Patient's troponins are negative and chest pain free. Patient is cleared by Cardiology to be discharged. Patient is being discharged under stable condition. To be noted patient declines to get home health home safety evaluation. Condition at Discharge: Stable Final Diagnosis/Problems List 1. Chest pain [place] ruled out 2. Chronic AFib 3. Recent history of ANA status post DCCV 4. Hypertension 5. Cholelithiasis with a distended gallbladder clinically acute cholecystitis has been ruled out as patient is asymptomatic and tolerating diet. 6.. History of uterine cancer status post total hysterectomy Discharge Disposition: Home SNF Discharge Will this Physician continue t: No Discharge Instruct/Medications Diet: Cardiac 2g Na,low cholest Activity: No Restrictions, As Tolerated Follow Up/Referral: Follow up with the PCP in one week Follow up with the Cardiology in 1-2 weeks Medications: Resume home medications including Eliquis Scheduled Amlodipine Besylate (Amlodipine Besylate), 1 TAB PO QAM, (Reported) Apixaban Base (Eliquis), 1 TAB PO BID, (Reported) Atenolol (Atenolol), 12.5 MG PO BID, (Reported) Calcium W/ Vitamin D (Calcium/Vitamin D), 600 MG PO DAILY, (Reported) Cyclosporine (Ophth) (Restasis), 0.5 DROP EACHEYE BID, (Reported) Famotidine (Pepcid Tablet), 2 TAB PO DAILY, (Reported) Latanoprost (Latanoprost), 1 DROP EACHEYE QPM, (Reported) Metronidazole (Topical) (Metronidazole), 1 % EX BID, (Reported) Pantoprazole Sodium Sesquihydr (Protonix), 1 TAB PO DAILY, (Reported) Discharge Statement: "Patient was advised to return to the ER or call 911 if any headaches, dizziness, shortness of breath, chest pain, abdominal pain, bleeding, fevers, or worsening of medical condition. Patient was counseled about treatment plan, medications, possible side effects, patientverbalized understanding. All questions were answered to the best of my ability. This discharge took greater then 30 minutes in planning, reviewing documentation, counseling the patient, and discussing with other team members." ASSESSMENT ASSESSMENT Assessment 1. Chest pain [place] ruled out 2. Chronic AFib 3. Recent history of ANA status post DCCV 4. Hypertension 5. Cholelithiasis with a distended gallbladder clinically acute cholecystitis has been ruled out as patient is asymptomatic and tolerating diet. 6.. History of uterine cancer status post total hysterectomy Date of Service: Apr 12, 2025 Billing Provider: NICKY HERNANDEZ MD Common Visit Codes: NOT BILLABLE NICKY HERNANDEZ MD Apr 12, 2025 16:39
[2025-04-12 16:56] VITALS: BP 151/73; PULSE 66; RESP 18; TEMP 97.4; O2SAT 100
[2025-04-12] MEDS ORDERED: METOPROLOL TARTRATE 25 MG TAB PO SCH (22:00)
[2025-04-12] MEDS ORDERED: APIXABAN 2.5 MG TAB PO SCH (22:00)
--- NOTE | 2025-04-13 09:43 | DVHSR ---
APPROVED REPORT EXAM: Two-dimensional and M-mode echocardiogram with Doppler and color Doppler. Blood Pressure: 136/97 mmHg INDICATION unstable angina RISK FACTORS Height: 5'5, DIMENSIONS LVDd4.0 (3.8-5.7cm)LA (2D)4.4 (1.9-4.0cm)Aortic Root3.4 (2.0-3.7cm) LVDs2.6 (2.5-4.0cm)LA (MM) (1.9-4.0cm)Aortic Cusp Exc1.4 (1.5-2.0cm) EF (%) 60.0 (55-70%)Rt. Atrium2.9 (1.9-4.0cm)Asc. Aorta3.5 cm IVSd1.1 (0.7-1.1cm)RV (D)3.3 (1.8-2.4cm) PWd1.0 (0.7-1.1cm) Mitral Valve MitralMitral Stenosis E wave0.52m/sMV Mean GR.mmHg A wave0.52m/sMV Peak GR.62mmHg E/A ratio1.02D MVAcm2 DECEL [id number] 1/2 Tim[place] Aortic Valve Aortic ValveAortic Stenosis V11.18m/Jeremi Mean GR.4mmHg V21.29m/Jeremi Peak GR.7mmHg LVOT Diameter2.1 (1.8-2.4cm)Doppler AVA3.17cm2 Pulmonic Valve V20.93m/s Tricuspid Valve TR Velocity2.27m/s Conclusion lvef 65% moderate to severe LVH normal rv function no severe valve abnormalities noted
== END 2025-04-12 17:55 | disposition home or self-care (01) | DRG 392 ==
LOC: ER 12:51 → OVERFLOW 18:29 → TELE-WESTW 22:10
PROVIDERS: ADMIT Internal Medicine; ATTEND Internal Medicine
DX: K21.9 Gastro-esophageal reflux disease without esophagitis (principal); I48.20 Chronic atrial fibrillation, unspecified; I10 Essential (primary) hypertension; I44.0 Atrioventricular block, first degree; K82.8 Other specified diseases of gallbladder; K80.20 Calculus of gallbladder without cholecystitis without obstruction; Z79.01 Long term (current) use of anticoagulants; Z79.899 Other long term (current) drug therapy; Z90.710 Acquired absence of both cervix and uterus; Z85.42 Personal history of malignant neoplasm of other parts of uterus; Z80.8 Family history of malignant neoplasm of other organs or systems
CPT/HCPCS: 36415; 71045; 71275; 80048; 80061; 83036; 83735; 84443; 84484; 85025; 93005; 93306; 96360; 97163; 99291; G0378; J2470